=== PATIENT | female | born 1950 | race Caucasian/White ===

== ENCOUNTER 2017-05-06 12:43 | Day surgery (SDC) | payer MEDICARE ==
[~2017-05-06 12:43] MED LIST: FUROSEMIDE40 MG PO; GARLIC500 MG PO; KEFLEX 500MG.500 MG PO; LEVOTHYROXIN0.075 M1 PO; LISINOPRIL 20MG20 MG NG; LOVASTATIN40 MG PO; VITAMIN B 6 OR
--- NOTE | 2017-05-06 14:20 | Operative Note ---
Colonoscopy ([place]) Procedure date: 05/06/17 Date of : 50 Procedure:Colonoscopy Colonoscopy with cold biopsies Indications: Mrs. Spain is a 66-year-old female who is here for follow-up screening/ surveillance colonoscopy. The patient did have a colonoscopy in [place] in 2007 and had 3 polyps removed (report/pathology not available). The patient reports a long history of diarrhea predominant IBS but has had no change in bowel habits. She has some occasional spotting of blood on the tissue from hemorrhoids. The patient reports no abdominal pain, weight loss or family history of colon cancer. Performing Provider: Ac Ayers MD Referrring Provider: Carmen Small M.D. Sedation: Fentanyl 200 mg IV/Versed 9 mg IV Procedure: Prior to the procedure, a history and physical exam was performed, and patient medications and allergies were reviewed. The risks and benefits of the procedure and the sedation options and risks were discussed with the patient. All questions were answered and informed consent was obtained. Patient identification and proposed procedure were verified by the physician and the nurse. The patient was placed in a left lateral decubitus position. Throughout the procedure, the patient's blood pressure, pulse, and oxygen saturations were monitored continuously. Findings: On digital rectal examination there was normal rectal tone. There were no external hemorrhoids. The colonoscope was introduced through the anal canal to the rectum and advanced to the cecum. The ileocecal valve and appendiceal orifice were identified. The scope was advanced a short distance into the ileum which appeared grossly normal. The scope was then withdrawn into the colon. The cecum, ascending and transverse colon and mucosa were grossly normal. There was an area of mucosal erythema/edema that was very focal possibly related to nonsteroidal anti-inflammatory drugs and was biopsied. There were scattered diverticuli throughout the descending and sigmoid colon (LEFT colon). The rectum itself was normal. Upon retroflexion within the rectum there were grade 1 internal hemorrhoids. Impressions: 1. Left-sided diverticulosis 2. Grade 1 internal hemorrhoids Recommendations: The patient will not require screening/surveillance colonoscopy again for 10 years by ACS guidelines. I would encourage probiotic therapy and fiber bulk supplementation on a long- term daily maintenance basis. Complications: None EBL (ml): 0 at 8938
[2017-05-06 15:25] VITALS: BP 105/69
== END 2017-05-06 15:20 | disposition home or self-care (01) ==
LOC: SDC 12:43
PROVIDERS: Internal Medicine Gastroenterology
PROC: 0DJD8ZZ Inspection of Lower Intestinal Tract, Via Natural or Artificial Opening Endoscopic (ICD-10-PCS; principal; 2017-05-06 14:00)
DX: Z12.11 Encounter for screening for malignant neoplasm of colon (principal); Z86.010 Personal history of colon polyps; K57.30 Diverticulosis of large intestine without perforation or abscess without bleeding; K64.0 First degree hemorrhoids